=== PATIENT | female | born 1995 | race Two or more races ===

== ENCOUNTER 2017-04-01 03:29 | Emergency (ER) | payer MEDICAID, OTHER ==
[~2017-04-01] VITALS: Ht 152.4 cm; Wt 81.6 kg
--- NOTE | 2017-04-01 03:45 | NUR ---
Pt walked into ER c/o difficulty breathing, states she has a history of asthma and ran out of her enhaler. Pt speaking full sentences, O2 sats maintaining greater than 95 % on RA, pt alert, oriented x 4, at bedside...
[2017-04-01] MEDS: predniSONE 10 MG TABLET PO ONE (03:49)
[2017-04-01] MEDS: ALBUTEROL SULFATE 2.5 MG/3 ML NEBU NEB ONE (03:55)
[2017-04-01] MEDS: IPRATROPIUM BROMIDE 0.5 MG/2.5 ML NEBU NEB ONE (03:56)
--- NOTE | 2017-04-01 03:58 | NUR ---
RT IN ROOM WITH PT ADMINISTERING BREATHING TREATMENT...
[2017-04-01] MEDS ORDERED: predniSONE 10 MG TABLET ONE (04:01)
[2017-04-01] MEDS ORDERED: predniSONE 50 MG TABLET ONE (04:01)
[2017-04-01] MEDS ORDERED: ALBUTEROL SULFATE 2.5 MG/3 ML NEBU ONE (04:08)
[2017-04-01] MEDS ORDERED: IPRATROPIUM BROMIDE 0.5 MG/2.5 ML NEBU ONE (04:08)
--- NOTE | 2017-04-01 04:22 | NUR ---
Patient discharged to home in stable conditon. Written and verbal after care instructions given. Patient verbalizes understanding of instructions. pt walked out of ER unassisted with belongings at side...
[2017-04-01 04:23] VITALS: BP 115/74
== END 2017-04-01 04:25 | disposition home or self-care (01) ==
LOC: ER 03:35
DX: J45.901 Unspecified asthma with (acute) exacerbation (principal)
CPT/HCPCS: 94640; 99283; A4663; J3590; J7512 ×2